=== PATIENT | male | born 1975 | race Caucasian/White ===

== ENCOUNTER 2022-02-18 20:53 | Inpatient (IN) ==
[2022-02-18] MEDS ORDERED: LORazepam 1 MG/1 ML SYR IV STA (20:56)
[2022-02-18] MEDS ORDERED: SODIUM CHLORIDE 0.9% 500 ML IV STA (20:56)
[2022-02-18] MEDS ORDERED: MoRPHine SULFATE 4 MG/ML 1 ML CARP\\VIAL IV STA (20:58)
[2022-02-18] MEDS ORDERED: ONDANSETRON INJ 2 MG/ML 2 ML VIAL IV STA (20:58)
[2022-02-18] MEDS ORDERED: ONDANSETRON INJ 2 MG/ML 2 ML VIAL ONE (21:00)
[2022-02-18] MEDS ORDERED: MoRPHine SULFATE 4 MG/ML 1 ML CARP\\VIAL ONE (21:00)
[2022-02-18] MEDS ORDERED: TICAGRELOR 90 MG TAB PO ONE (21:11)
[2022-02-18] MEDS ORDERED: niCARdipine HCL INJ 2.5 MG/ML 10 ML AMP ONE (21:12)
[2022-02-18] MEDS ORDERED: MIDAZOLAM HCL 1 MG/ML 2ML VIAL ONE (21:23)
[2022-02-18] MEDS ORDERED: fentaNYL citrate 100 MCG/2 ML VIAL ONE (21:23)
[2022-02-18] MEDS ORDERED: HEPARIN (PORCINE) 1000 UNIT/ML 10 ML (CATH LAB USE ONLY) ONE (21:23)
[2022-02-18 21:26] LABS: iSTAT Creatinine 1.1 mg/dl (0.6-1.3); iSTAT Ionized Calcium 1.08 mmol/l (1.12-1.32); iSTAT Potassium 3.8 mmol/L (3.3-5.0)
--- NOTE | 2022-02-18 21:26 | Emergency Department Note ---
Impression & Plan Acute PA, lateral wall, Chest pain ED Provider Note NAME: KIM CANADA AGE: 46 SEX: M : 1975 ARRIVES VIA: Ambulance INFORMANT: Patient, EMS ED PROVIDER(S): Sharad Pike DO CHIEF COMPLAINT: Chest pain HPI: The patient is a 46-year-old male who presented to the emergency department for an evaluation of chest pain. The patient started to develop chest pain approximately 7 PM this evening. He was not exerting himself. He does admit that he was at a camp[place] with his significant other. They tried a marijuana edible. The patient's never had any kind of reaction like this before. He has no family history of early coronary artery disease. He himself has no history of hypertension or diabetes but he admits that he does not see a doctor regularly. He does not take any medications regularly. He does use tobacco products. He states he has no shortness of breath. He has noticed no lower extremity swelling. He states he has severe chest pain which she described as a pressure that goes from his chest into his left arm. He denies having any back pain. He states the pain is not tearing. He has no family history of thoracic aortic aneurysm. The patient called 911. I did receive a prehospital notificat ion about this patient. The patient received aspirin as well as nitroglycerin prior to arrival. He had very little improvement of his symptoms. ROS: See above HPI for pertinent positives & negatives. A total of 10 systems reviewed and were otherwise negative. PAST MEDICAL HISTORY: See Below PAST SURGICAL HISTORY: See Below FAMILY HISTORY: See Below SOCIAL HISTORY: See Below HOME MEDICATIONS: See Below ALLERGIES: See Below VITALS: See Below PHYSICAL EXAMINATION: GENERAL: The patient is awake and alert. He is very anxious appearing and appears to be uncomfortable. EYES: The conjunctivae are clear. The pupils are round and reactive. EARS, NOSE, MOUTH AND THROAT: The nose is without any evidence of any deformity. NECK: The neck is nontender and supple. RESPIRATORY: Normal respiratory effort is noted there is no evidence of wheezing rhonchi or rales CARDIOVASCULAR: Regular rate and rhythm noted there no murmurs rubs or gallops normal S1 normal S2. GASTROINTESTINAL: The abdomen is soft. Abdomen is nontender. MUSCULOSKELETAL/EXTREMITIES: There is no evidence of gross deformity full range of motion is noted in the hips and shoulders. SKIN: There is no significant pedal edema. Pulses are symmetric in both wrists. NEUROLOGIC: Patient is awake alert and oriented x3 strength is symmetric patellar reflexes are 2+ bilaterally MEDICAL DECISION MAKING: The patient is a 46-year-old male who presented to the emergency department. The patient arrived via ambulance. I did receive a prehospital notification abo ut the patient. He was made a heart alert prior to arrival. The patient was treated with aspirin and nitroglycerin in the prehospital arena. He was felt to have an EKG consistent with an acute PA. The patient received IV pain medication and Ativan in the emergency department. He also received Brilinta. He was reevaluated multiple times. On reevaluation he was feeling much better and his EKG improved but still had findings consistent with acute ST segment elevation PA. The patient was evaluated by the lettuce cutter. He was felt to be a good candidate for the Final Touch Up Painter. He was consented for the Final Touch Up Painter. I discussed his condition with his significant other as well. I also discussed his case with the on-call [facility] hospitalist. Triage Nursing notes reviewed. Prior medical records reviewed Vital Signs: reviewed and remarkable for elevated blood pressure. Differential diagnosis: Cardiac ischemia, aortic dissection, pulmonary embolism, pneumothorax, pneumonia, pericarditis, myocarditis, esophageal rupture, GERD, cholecystitis, pancreatitis, musculoskeletal, as well as other pathologies. ER treatment provided: See below Diagnostics interpreted by me: ECG: EKG was obtained in the emergency department. My interpretation is normal sinus rhythm at 98 bpm. No PVCs were noted. There was acute ST segment elevation noted in the lateral leads as well as the apical leads. Reciprocal changes were noted in the inferior leads. No previous tracing was available. A second EKG was obtained in the emergency department. My interpretation is normal sinus rhythm at 81 bpm. This EKG was obtained after the patient was significantly improved. It does still show apical and low lateral ST segment elevation. The reciprocal changes have significantly improved. A prehospital EKG was obtained. My interpretation is normal sinus rhythm at [address] segment elevation was noted in the apical and low lateral leads. No reciprocal changes were noted. Cardiac Monitoring: An order was placed for continuous cardiac monitoring. The monitor shows a rate of 97 bpm with sinus rhythm. Laboratory studies: As stated above and show below. Imaging studies: See below Consultation(s): Heart alert was called. Dr. Spears was at the bedside and evaluated the patient. ED COURSE: Procedures: none Critical Care: I have personally spent greater than 35 minutes of critical care time in the d irect management of this patient. This includes bedside care, interpretation of diagnostic studies, and testing, discussion with consultants, patient, and family members, and other required patient management activities. This 35 minutes is in excess of all separately billable procedures. Past Med/Surg History Medical History Severe alcohol use disorder Surgical History History of appendectomy Social History Smoking Status: Current every day smoker Tobacco Type: Cigarettes Second Hand Exposure: No; Do You Dip or Chew Tobacco: No; Tobacco Cessation Education Requested by Patient: Yes Hx Alcohol Use: Yes Alcohol type: beer and hard liquor Hx Substance Use: Yes Last Used Substance: Just Prior to Arrival Preferred Language: Mohawk Communication Ability: Effective Furniture Cleaner Required: No Beliefs That Will Affect Care: None Current Living Situation: Significant Other Feels Safe at Home: Yes Safety Concerns: Feels Safe At This Time Assistive Devices: None Allergies Allergies Allergy/AdvReac Type Severity Reaction Status Date / Time No Known Allergies Allergy Verified 02/18/22 21:02 Home Meds Home Medications Medication Instructions Recorded Confirmed No Known Home Medications 02/18/22 02/18/22 Results & Data (ED) Vital Signs Vital Signs - 24 hr 02/18/22 20:57 02/18/22 21:11 02/18/22 21:12 Temperature 36.5 C Temperature Source Oral Pulse Rate 85 Pulse Rate [Right] 97 H Respiratory Rate 26 H 20 Respiratory Effort / Characteristics Non-Labored Spontaneous Non-Labored Spontaneous Respiratory Depth Normal Normal Blood Pressure 162/95 H Blood Pressure [Right Arm] 150/103 H Blood Pressure Mean 117 Blood Pressure Mean [Right Arm] 118 Blood Pressure Position Sitting Pulse Oximetry 99 100 100 Oxygen Delivery Method Room Air Room Air Room Air Sepsis Recent Fever Within 48 Hours No Sepsis New/Unexplained Change in Mental Status N/A Sepsis Action Taken by Nursing No Action Required Home Medications Current Medication List: was personally reviewed by sc Laboratory Data Attestation: I reviewed the patient's lab results. Result diagrams: 02/19/22 03:16 02/19/22 03:16 Lab Results 02/18/22 02/18/22 02/18/22 Range/Units 21:00 21:00 21:00 WBC 14.10 H (4.8-10.8) K/ul RBC 4.74 (4.63-6.08) M/uL Hgb 14.9 (14.0-18.0) g/dl POC Hgb (14.0-18.0) g/dl Hct 42.2 (40.1-51.0) % POC Hct (42-52) % MCV 89.0 (80.0-100.0) fL MCH 31.4 (25.0-34.0) pg MCHC 35.3 (32.0-36.0) g/dL RDW Std Deviation 41.6 (36.4-46.3) fL RDW Coeff of [place] 12.8 (11.5-14.5) % Plt Count 224 (130-400) K/uL MPV 10.6 (9.4-12.4) fL Immature Gran % (Auto) 0.6 % Neut % (Auto) 77.1 % Lymph % (Auto) 13.8 % [place] % (Auto) 7.0 % Eos % (Auto) 0.9 % Baso % (Auto) 0.6 % Neut # (Auto) 10.88 H (1.4-6.5) K/uL Lymph # (Auto) 1.95 (1.2-3.4) K/uL [place] # (Auto) 0.99 H (0.24-0.82) K/uL Eos # (Auto) 0.12 (0-0.50) K/uL Baso # (Auto) 0.08 (0-0.2) K/uL Immature Gran # (Auto) 0.08 H (0.00-0.02) K/uL PT 10.0 (9.0-12.0) Seconds INR 0.9 (0.9-1.1) APTT 23.1 (21.0-31.0) Seconds PTT Ratio 0.8 Activ Coag Time Kaolin (94-140) SECONDS POC Sodium (135-144) mmol/L Sodium 137 (136-145) mmol/L POC Potassium (3.3-5.0) mmol/L Potassium 3.4 L (3.5-5.1) mmol/L POC Chloride (101-112) mmol/L Chloride 102 (98-107) mmol/L Carbon Dioxide 24 (21-32) mmol/L POC Total CO2 (24-31) mmol/L Anion Gap 11 (3-11) POC Anion Gap (16-25) mmol/L POC BUN (7-18) mg/dl BUN 16 (6-23) mg/dl Creatinine 1.07 (0.6-1.4) mg/dl POC Creatinine (0.6-1.3) mg/dl Est Cr Clr Drug Dosing 118.2 ml/min Est GFR ( Amer) 97.3 ml/min Est GFR (Non-Af Amer) 84.0 ml/min BUN/Creatinine Ratio 15.0 (10-20) Glucose 102 H (70-99(Fasting)) mg/dl POC Glucose (other) (70-99) mg/dl Calcium 8.9 (8.5-10.1) mg/dl POC Ioniz Calcium Franky (1.12-1.32) mmol/l Total Bilirubin 0.5 (0.2-1.0) mg/dl AST 22 (13-39) U/L ALT 23 (7-52) U/L Alkaline Phosphatase 51 (34-104) U/L Troponin I High Sens 58.7 H* (0-20) pg/ml Total Protein 7.4 (6.0-8.3) gm/dl Albumin 4.6 (3.4-5.0) gm/dl Globulin 2.8 (2.5-4.0) gm/dl Albumin/Globulin Ratio 1.6 (0.9-2) Lipase 15 (11-82) U/L SARS-CoV-2, RNA, NAAT (NEGATIVE) 02/18/22 02/18/22 02/18/22 Range/Units 21:05 21:13 22:01 WBC (4.8-10.8) K/ul RBC (4.63-6.08) M/uL Hgb (14.0-18.0) g/dl POC Hgb 16.0 (14.0-18.0) g/dl Hct (40.1-51.0) % POC Hct 47 (42-52) % MCV (80.0-100.0) fL MCH (25.0-34.0) pg MCHC (32.0-36.0) g/dL RDW Std Deviation (36.4-46.3) fL RDW Coeff of [place] (11.5-14.5) % Plt Count (130-400) K/uL MPV (9.4-12.4) fL Immature Gran % (Auto) % Neut % (Auto) % Lymph % (Auto) % [place] % (Auto) % Eos % (Auto) % Baso % (Auto) % Neut # (Auto) (1.4-6.5) K/uL Lymph # (Auto) (1.2-3.4) K/uL [place] # (Auto) (0.24-0.82) K/uL Eos # (Auto) (0-0.50) K/uL Baso # (Auto) (0-0.2) K/uL Immature Gran # (Auto) (0.00-0.02) K/uL PT (9.0-12.0) Seconds INR (0.9-1.1) APTT (21.0-31.0) Seconds PTT Ratio Activ Coag Time Kaolin 227 H (94-140) SECONDS POC Sodium 137 (135-144) mmol/L Sodium (136-145) mmol/L POC Potassium 3.8 (3.3-5.0) mmol/L Potassium (3.5-5.1) mmol/L POC Chloride 103 (101-112) mmol/L Chloride (98-107) mmol/L Carbon Dioxide (21-32) mmol/L POC Total CO2 21 L (24-31) mmol/L Anion Gap (3-11) POC Anion Gap 18.0 (16-25) mmol/L POC BUN 16 (7-18) mg/dl BUN (6-23) mg/dl Creatinine (0.6-1.4) mg/dl POC Creatinine 1.1 (0.6-1.3) mg/dl Est Cr Clr Drug Dosing ml/min Est GFR ( Amer) ml/min Est GFR (Non-Af Amer) ml/min BUN/Creatinine Ratio (10-20) Glucose (70-99(Fasting)) mg/dl POC Glucose (other) 118 H (70-99) mg/dl Calcium (8.5-10.1) mg/dl POC Ioniz Calcium Franky 1.08 L (1.12-1.32) mmol/l Total Bilirubin (0.2-1.0) mg/dl AST (13-39) U/L ALT (7-52) U/L Alkaline Phosphatase (34-104) U/L Troponin I High Sens (0-20) pg/ml Total Protein (6.0-8.3) gm/dl Albumin (3.4-5.0) gm/dl Globulin (2.5-4.0) gm/dl Albumin/Globulin Ratio (0.9-2) Lipase (11-82) U/L SARS-CoV-2, RNA, NAAT NEGATIVE (NEGATIVE) Administered Medications Aspirin (Aspirin 81 Mg Ectab) [facility] Stop: 03/21/22 08:59 Last Admin: 02/19/22 08:23 Dose: 81 mg Documented By: GPF Atorvastatin Calcium (Atorvastatin 40 Mg Tab) 40 mg PO [facility] Stop: 03/21/22 08:59 Last Admin: 02/19/22 08:24 Dose: 40 mg Documented By: GPF Metoprolol Tartrate (Metoprolol Tartrate 25 Mg Tab) 25 mg PO BID [facility] Stop: 03/20/22 22:29 Last Admin: 02/19/22 08:24 Dose: 25 mg Documented By: Admin: 02/18/22 23:11 Dose: 25 mg Documented By: CF Pantoprazole Sodium (Pantoprazole 40 Mg Tab) 40 mg PO [facility] Stop: 03/21/22 08:59 Last Admin: 02/19/22 08:24 Dose: 40 mg Documented By: GPF Ticagrelor (Ticagrelor 90 Mg Tab) 90 mg PO BID [facility] Stop: 03/21/22 08:59 Last Admin: 02/19/22 08:24 Dose: 90 mg Documented By: GPF Discontinued Medications Amiodarone HCl/Dextrose (Amiodarone 360mg / 200ml D5w (Final Touch Up Painter Use Only)) Confirm Administered Dose 360 mg IV .STK-MED [facility] Stop: 02/18/22 21:39 Last Admin: 02/18/22 22:19 Dose: 150 mg Documented By: [facility] Amiodarone HCl (Amiodarone Hcl Inj 50 Mg/Ml 3 Ml Vial (Final Touch Up Painter Use Only)) Confirm Administered Dose 150 mg IV .STK-MED ONE Stop: 02/18/22 21:40 Last Admin: 02/18/22 22:20 Dose: 150 mg Documented By: MSD Fentanyl Citrate (Fentanyl Citrate 100 Mcg/2 Ml Vial) Confirm Administered Dose 100 mcg .ROUTE .STK-MED ONE Stop: 02/18/22 21:24 Last Increment: 02/18/22 22:19 Dose: 25 mcg Documented By: [facility] Heparin Sodium (Porcine) (Heparin (Porcine) 1000 Unit/Ml 10 Ml (Final Touch Up Painter Use Only)) Confirm Administered Dose 10,000 units .ROUTE .STK-MED ONE Stop: 02/18/22 21:24 Last Admin: 02/18/22 22:19 Dose: 10,000 units Documented By: VICENTE Sodium Chloride (Nss) 500 mls @ 999 mls/hr IV .Q31M STA Stop: 02/18/22 21:26 Last Infusion: 02/18/22 22:55 Dose: 0 mls/hr Documented By: Admin: 02/18/22 21:03 Dose: 999 mls/hr Documented By: LINSEY Pantoprazole Sodium 40 mg/ (Syringe) 10 mls @ 5 mls/min IV NOW ONE Stop: 02/18/22 23:01 Last Admin: 02/18/22 23:11 Dose: 5 mls/min Documented By: KARLA Lorazepam 1 mg/ Syringe 1 mls @ 2 mls/min IV ONE PRN; Protocol PRN Reason: EtoH Withdrawal AWSS 6,7,8,9,10 Last Admin: 02/19/22 00:06 Dose: 2 mls/min Documented By: KARLA Lorazepam (Lorazepam 1 Mg/1 Ml Syr) 1 mg IV NOW STA; Protocol Stop: 02/18/22 20:57 Last Admin: 02/18/22 21:03 Dose: 1 mg Documented By: LINSEY Midazolam HCl (Midazolam Hcl 1 Mg/Ml 2ml Vial) Confirm Administered Dose 2 mg .ROUTE .STK-MED ONE Stop: 02/18/22 21:24 Last Increment: 02/18/22 22:19 Dose: 1 mg Documented By: VICENTE Morphine Sulfate (Morphine Sulfate 4 Mg/Ml 1 Ml Carp\Vial) 4 mg IV NOW STA Stop: 02/18/22 20:59 Last Admin: 02/18/22 21:03 Dose: Not Given Documented By: LINSEY Morphine Sulfate (Morphine Sulfate 4 Mg/Ml 1 Ml Carp\Vial) Confirm Administered Dose 4 mg .ROUTE .STK-MED ONE Stop: 02/18/22 21:01 Last Admin: 02/18/22 21:03 Dose: 4 mg Documented By: LINSEY Nicardipine HCl (Nicardipine Hcl Inj 2.5 Mg/Ml 10 Ml Amp) Confirm Administered Dose 25 mg .ROUTE .STK-MED ONE Stop: 02/18/22 21:13 Last Admin: 02/18/22 22:19 Dose: 25 mg Documented By: VICENTE Ondansetron HCl (Ondansetron Inj 2 Mg/Ml 2 Ml Vial) 4 mg IV NOW STA Stop: 02/18/22 20:59 Last Admin: 02/18/22 21:03 Dose: 4 mg Documented By: LINSEY Ondansetron HCl (Ondansetron Inj 2 Mg/Ml 2 Ml Vial) Confirm Administered Dose 4 mg .ROUTE .STK-MED ONE Stop: 02/18/22 21:01 Last Admin: 02/18/22 21:04 Dose: Not Given Documented By: LINSEY Potassium Chloride (Potassium Chloride Crtab 20 Meq Tabcr) 40 meq PO NOW STA Stop: 02/19/22 04:01 Last Admin: 02/19/22 04:13 Dose: 40 meq Documented By: KARLA Ticagrelor (Ticagrelor 90 Mg Tab) 180 mg PO ONE ONE Stop: 02/18/22 21:12 Last Admin: 02/18/22 21:17 Dose: 180 mg Documented By: LINSEY Imaging Data Attestation: I personally reviewed and interpreted this imaging study as follows: My Impression: 1 view chest x-ray was obtained in the emergency department. My interpretation is no definite free air, no infiltrate, no acute disease. Radiologist's Impression: Chest X-Ray 02/18/22 20:56 XR chest 1V portable CLINICAL HISTORY: Chest Pain TECHNIQUE: Single frontal radiograph of the chest was obtained. Comparison: None available at the time of this dictation. FINDINGS: Exam is limited by underpenetration. The cardiomediastinal silhouette is normal. Faint airspace opacity is seen in the right greater than left lower lung. No evidence of pleural effusion or pneumothorax. IMPRESSION: Faint bilateral airspace opacities which may represent aspiration, atelectasis, and/or pneumonia. ACT 112: Negative or not required by law. Electronically signed by: Ramakrishna Bryant M.D. 02/19/2022 7:58 AM Discharge Plan Visit Data Chief Complaint: Heart Alert ED Provider: Sharad Pike Discharge Problem: Acute PA, lateral wall, Chest pain Patient Disposition: Admitted As Inpatient Discharge Instructions Interventions: ED Discharge Assessment Last Done: 02/18/22 21:19 : Chest pain Qualifiers: Chest pain type: chest pain due to myocardial ischemia Ischemic chest pain type: unspecified angina pectoris type Qualified Code(s): I25.9 - Chronic ischemic heart disease, unspecified
[2022-02-18 21:28] LABS: INR 0.9 (0.9-1.1); Partial Thromboplastin Ratio 0.8; Partial Thromboplastin Time 23.1 Seconds (21.0-31.0)
[2022-02-18 21:36] LABS: Basophils # (auto) 0.08 K/uL (0-0.2); Basophils % (auto) 0.6 %; Eosinophils # (auto) 0.12 K/uL (0-0.50); Eosinophils % (auto) 0.9 %; Hematocrit (blood only) 42.2 % (40.1-51.0); Hemoglobin 14.9 g/dl (14.0-18.0); Immature Granulocytes # (auto) 0.08 K/uL (0.00-0.02); Immature Granulocytes % (auto) 0.6 %; Lymphocytes # (auto) 1.95 K/uL (1.2-3.4); Lymphocytes % (auto) 13.8 %; Mean Corpuscular Hemoglobin 31.4 pg (25.0-34.0); Mean Corpuscular Hgb Conc 35.3 g/dL (32.0-36.0); Mean Platelet Volume 10.6 fL (9.4-12.4); Monocytes # (auto) 0.99 K/uL (0.24-0.82); Neutrophils # (auto) 10.88 K/uL (1.4-6.5); Neutrophils % (auto) 77.1 %; Platelet Count 224 K/uL (130-400); RDW Coefficient of Variation 12.8 % (11.5-14.5); RDW Standard Deviation 41.6 fL (36.4-46.3); Red Blood Count 4.74 M/uL (4.63-6.08)
[2022-02-18] MEDS ORDERED: AMIODARONE 360MG / 200ML D5W (CATH LAB USE ONLY) IV ONE (21:38)
[2022-02-18] MEDS ORDERED: AMIODARONE HCL INJ 50 MG/ML 3 ML VIAL (CATH LAB USE ONLY) IV ONE (21:39)
[2022-02-18 21:47] LABS: Albumin Globulin Ratio 1.6 (0.9-2); Albumin Level 4.6 gm/dl (3.4-5.0); Bilirubin,Total 0.5 mg/dl (0.2-1.0); Calcium 8.9 mg/dl (8.5-10.1); Creatinine Clr Calc Pharmacy 118.2 ml/min; Est GFR (African American) 97.3 ml/min; Globulin 2.8 gm/dl (2.5-4.0); Potassium 3.4 mmol/L (3.5-5.1); Total Protein 7.4 gm/dl (6.0-8.3)
[2022-02-18 21:48] LABS: Troponin I High Sensitivity 58.7 pg/ml (0-20)
--- NOTE | 2022-02-18 21:55 | History & Physical Report ---
Date of Service February 18, 2022 Assessment & Plan (1) STEMI (ST elevation myocardial infarction): Plan: Symptoms of unstable angina with anterolateral ST segment elevations on initial EKG in the ED. S/p PCI with KATIE to LAD. - admit to ICU for close hemodynamic monitoring - hsTroponin 58.7 - trend to peak - TTE ordered - pending - EKG PRN chest pain - s/p Aspirin 324mg en route to hospital - continue with ASA 81mg daily - loaded with Brilinta - continue with Brilinta 90mg daily - start Atorvastatin 40mg PO QAM - start Metoprolol tartrate 25mg PO BID - consider BRENNA-I - defer to primary team/Cardiology - lipid profile and A1c ordered for AM (2) S/P coronary artery stent placement: Plan: KATIE to LAD. Plan as above (3) Current smoker: Plan: 25 pack year history and currently smokes 1/2-1ppd. - counseled on cessation (4) Severe alcohol use disorder: Plan: Has 6-12 drinks per day, and had 3 beers shortly before presentation. - AWSS protocol with PRN Ativan - counseled on cessation Plan FEN/GI: heart-healthy diet DVT Prophylaxis: Aspirin/Brilinta Code Status: full code Disposition: ICU History of Present Illness Chief Complaint: chest pain Primary Care Provider: NO PCP Bubba Jacques is a 46yo male without significant PMHx who presented to [facility] ED on 02/18 via EMS as heart alert, for acute-onset retrosternal chest pain radiating to left arm - acute onset at 7pm and non-exertional. Patient does not regularly see a doctor but denies chronic medical problems or regular medications. He is a current smoker with 25 pack year history and currently smokes 1/2-1ppd. Also has 6-12 drinks per day (usually mixed drinks and beer); last drink was earlier this evening. Denies family h/o CAD/heart disease/[place]. Patient received Aspirin 324mg and SL Nitroglycerin en route to our ED, with minimal improvement in symptoms. In the ED the patient had persistent chest pain. Mildly hypertensive to 162/95 and tachypneic to 26. Satting well on room air. EKG with anterolateral ST elevations. Labs otherwise notable for hsTroponin 58.7, WBC 14.10 (neutrophilic predominance and mild L shift), K 3.4. CBC/CMP/PT/PTT/INR otherwise WNL. Patient was taken for PCI with KATIE x1 to LAD. Was also loaded with Brilinta. On assessment after PCI, patient reports that chest pain has resolved but still has mild left arm pain. Allergies Allergy/AdvReac Type Severity Reaction Status Date / Time No Known Allergies Allergy Verified 02/18/22 21:02 Home Medications Medication Instructions Recorded Confirmed Type No Known Home Medications 02/18/22 02/18/22 History Past Med/Surg History Medical History Severe alcohol use disorder Surgical History History of appendectomy Social History Smoking Status: Current every day smoker Tobacco Type: Cigarettes Second Hand Exposure: No; Do You Dip or Chew Tobacco: No; Tobacco Cessation Education Requested by Patient: Yes Hx Alcohol Use: Yes Alcohol type: beer and hard liquor Hx Substance Use: Yes Last Used Substance: Just Prior to Arrival Preferred Language: Bolivian Communication Ability: Effective Treatment Plant Mechanic Required: No Beliefs That Will Affect Care: None Current Living Situation: Significant Other Feels Safe at Home: Yes Safety Concerns: Feels Safe At This Time Assistive Devices: None Review of Systems Review of Systems: All systems reviewed & are unremarkable except as noted in HPI & below Physical Exam Physical Exam: General: A&Ox3. NAD. Cooperative. HEENT: Atraumatic, normocephalic. Pulm: CTAB A&P. -wheezes, -rales, -rhonchi. Symmetrical chest rise. No increase work of breathing. No respiratory distress. Cardiac: RRR, -mrg. Radial pulses intact and symmetrical. No LE edema. Chest: pain not reproducible on palpation Abdominal: soft, non-tender, non-distended, BS x 4 Skin: warm, dry, no rash Results & Data Results & Data ([facility]) Vital Signs (Past 12 Hours) Vital Signs Temp Pulse Pulse Resp BP BP Pulse Ox 02/18/22 21:12 97 H 20 150/103 H 100 02/18/22 21:11 100 02/18/22 20:57 36.5 C 85 26 H 162/95 H 99 O2 Del Method 02/18/22 21:12 Room Air 02/18/22 21:11 Room Air 02/18/22 20:57 Room Air Supervising Physician Co-Signing Physician Notes Patient seen and examined, chart reviewed, case discussed with Dr. Eugene and I agree with the assessment and plan as above. In brief, patient is a 46yo male, tobacco use, absent from routine medical care presenting with chest pain - EKG changes consistent with anterior STEMI. Patient Code Heart - taken to the quality assurance/r&d lab technician and found to have 80 - 90% stenosis of proximal LAD s/p KATIE placement. He is presently in the MICU, doing well. Denies chest pain. On exam he is afebrile, hypertensive otherwise HD stable. No ectopy noted on telemetry Skin - intact, no rashes HEENT - NC/AT, PERRL, MMM, neck supple Heart - +S1/S2, regular, no m/r/g Lungs - CTA Abd - +BS, soft, NT/ND Ext - warm, well perfused, no clubbing/cyanosis or edema, occlusion band present on right wrist Labs and images reviewed WBC=14 K=3.4 Trop=58.7 Assessment/Plan- 46yo male, active tobacco use and EtoH presenting with anterior STEMI, EF of 40-45% with apical akinesis -Trend troponin -Echo in AM -ASA, Brillinta, Metoprolol, Atorvastatin -Check A1C and Lipid profile for risk assessment -Smoking cessation counseling -AWSS, PRN Ativan -Remainder as above Resident Activity Tracking Resident Involvement: Resident Care Provided Care Provided: Adult Hospital Medicine
[2022-02-18] MEDS ORDERED: ICU Protocol for HYPERglycemia PRN (22:17)
--- NOTE | 2022-02-18 22:51 | Critical Care Consultation ---
Date of Consultation February 18, 2022 Assessment & Plan (1) STEMI (ST elevation myocardial infarction): (2) S/P coronary artery stent placement: (3) Current smoker: Plan Reason Critically Ill: STEMI s/p KATIE to LAD. Admitted to ICU for continued monitoring post procedure. Neuro - ETOH misuse CAM ICU: Negative - Follow as sedating medications wear off - CIWA protocol recommended Cardiac - STEMI, S/p Stenting of Proximal LAD [place] coronary artery, Elevated blood pressure - Arrived hypertensive - BB initiated, BRENNA as hemodynamics allow - Continue Brilinta 90 mg PO BID - Statin initiation - ASA 81mg daily - ECHO in am - ECG now and with chest pain - Continue to trend HScTNI - Smoking cessation Respiratory - Current smoker - as above GI - GERD - OTC treatment occasionally- will add PPI on while on DAPT RENAL/LYTES -NO acute needs - electrolyte replacement protocol - No acute needs ENDO - follow lipid panel, and HGBA1c - elevated serum glucose on arrival- follow HEME - NO acute needs ID - No acute needs LINES/IV ACCESS - PIV, radial access site - continue post site protocol for radial access Continue use of PIV DVT PROPHYLAXIS - SCDS DISPO: ICU overnight I have personally spent 40 minutes of critical care time in the direct management of this patient. This is a life/limb threatening event. This includes time spent evaluating patient, direct bedside care, chart review, placing orders, interpretation of diagnostic studies, discussion with consultants, patient, and family members, as well as other required patient management activities. This time is exclusive of all separately billable procedures, and separate from and in addition to any other critical care service time. Thank you for allowing us to participate in the care of this patient. Please refer to my attending physician's documentation for any further recommendations. History of Present Illness Reason for Consultation: STEMI s/p KATIE Requesting Physician: Joie Cifuentes Attending Physician: Cici Rowland MD History of Present Illness 46 YOM presents to the EMD today for complaints of chest pain. Patient states that they were camping and following 3 beers and some edible gummies, he started to experience chest and left arm pain. The pain started in his left arm then progressed to his wrist, neck and chest- feeling like "jolts of shocks", this was associated with diaphoresis, pain, difficulty breathing. 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 His girlfriend is at bedside and endorses that he has seemed more dyspneic over the past few weeks. He was transported by EMS. In the EMD the patient received Ativan, morphine with some relief of his pain and improvement in ECG. He was taken emergently to the lab aide, where he received 1 KATIE to the LAD. Patient was evaluated in the ICU post procedure, we will continue monitoring, continue BID Brilinta, BB initiation, smoking cessation. Further risk reduction medical management as hemodynamics allow. History of current smoker, ETOH use 3-8 beers daily with episodes of binging up to 12 >3 times per week, patient reports no family history of early heart attacks. Allergies Allergy/AdvReac Type Severity Reaction Status Date / Time No Known Allergies Allergy Verified 02/18/22 21:02 Home Medications Medication Instructions Recorded Confirmed Type No Known Home Medications 02/18/22 02/18/22 History Patient History Medical History Severe alcohol use disorder Surgical History History of appendectomy Social History Smoking Status: Current every day smoker Tobacco Type: Cigarettes Second Hand Exposure: No; Do You Dip or Chew Tobacco: No; Tobacco Cessation Education Requested by Patient: Yes Hx Alcohol Use: Yes Alcohol type: beer and hard liquor Hx Substance Use: Yes Last Used Substance: Just Prior to Arrival Preferred Language: Polish Communication Ability: Effective Archeologist Required: No Beliefs That Will Affect Care: None Current Living Situation: Significant Other Feels Safe at Home: Yes Safety Concerns: Feels Safe At This Time Assistive Devices: None Review of Systems Review of Systems: REVIEW OF SYSTEMS: Constitutional: No fever, sweats or chills Eyes: No diplopia, no worsening or blurred vision ENT: normal hearing, no trouble swallowing Respiratory: (+) smoker, No cough, sputum, dyspnea at rest or on exertion Cardiovascular: (+) chest pain, tightness or NO palpitations Abdomen: No pain, nausea, vomiting, diarrhea or constipation Musculoskeletal: No joint pain, calf pain, swelling Neurologic: No weakness, numbness/tingling, or balance problems Psychiatric: (+) ETOH misuse, No anxiety or depression Skin: No rash or itch Physical Exam Physical Exam: PHYSICAL EXAM: General: awake, alert, no apparent distress Head: Normocephalic, atraumatic ENT: PERRL, EOMI, no pharyngeal exudate, mucous membranes moist Neuro: AAO x 3, speech clear and appropriate, strength intact bilaterally 5/5, sensation intact and equal all extremities and dermatomes, no pronator drift Chest: equal rise and fall of the chest, no accessory muscle use, no heaves or thrills, Clear to auscultation, on room air, Cardiac: Regular rate and rhythm, telemetry reviewed- NSR no ectopy, skin warm dry, cap refill <3 seconds, peripheral pulses +2 no JVD, no murmur, no edema GI: NABS x 4 quadrants, soft, nontender to palpation, no rebound, guarding or tenderness : Spontaneously voiding, no pain, no CVA tenderness, Extremities: Normal inspection, no peripheral edema or erythema, calfs nontender to palpation Psych: Normal mood and affect Skin: no rash or erythema Results & Data Results & Data ([facility]) Vital Signs (Past 12 Hours) Vital Signs Temp Pulse Pulse Resp BP BP Pulse Ox 02/18/22 22:31 36.8 C 75 20 142/90 H 98 02/18/22 21:12 97 H 20 150/103 H 100 02/18/22 21:11 100 02/18/22 20:57 36.5 C 85 26 H 162/95 H 99 O2 Del Method 02/18/22 22:31 Room Air 02/18/22 21:12 Room Air 02/18/22 21:11 Room Air 02/18/22 20:57 Room Air Laboratory Results Abnormal lab results 02/18/22 02/18/22 02/18/22 Range/Units 21:00 21:00 21:13 WBC 14.10 H (4.8-10.8) K/ul Neut # (Auto) 10.88 H (1.4-6.5) K/uL [place] # (Auto) 0.99 H (0.24-0.82) K/uL Immature Gran # (Auto) 0.08 H (0.00-0.02) K/uL Activ Coag Time Kaolin (94-140) SECONDS Potassium 3.4 L (3.5-5.1) mmol/L POC Total CO2 21 L (24-31) mmol/L Glucose 102 H (70-99(Fasting)) mg/dl POC Glucose (other) 118 H (70-99) mg/dl POC Ioniz Calcium Franky 1.08 L (1.12-1.32) mmol/l Troponin I High Sens 58.7 H* (0-20) pg/ml 02/18/22 Range/Units 22:01 WBC (4.8-10.8) K/ul Neut # (Auto) (1.4-6.5) K/uL [place] # (Auto) (0.24-0.82) K/uL Immature Gran # (Auto) (0.00-0.02) K/uL Activ Coag Time Kaolin 227 H (94-140) SECONDS Potassium (3.5-5.1) mmol/L POC Total CO2 (24-31) mmol/L Glucose (70-99(Fasting)) mg/dl POC Glucose (other) (70-99) mg/dl POC Ioniz Calcium Franky (1.12-1.32) mmol/l Troponin I High Sens (0-20) pg/ml Medications Administered Discontinued Medications Amiodarone HCl/Dextrose (Amiodarone 360mg / 200ml D5w (Orthotic/Prosthetic Practitioner Use Only)) Confirm Administered Dose 360 mg IV .STK-MED ONE Stop: 02/18/22 21:39 Last Admin: 02/18/22 22:19 Dose: 150 mg Documented By: [facility] Amiodarone HCl (Amiodarone Hcl Inj 50 Mg/Ml 3 Ml Vial (Orthotic/Prosthetic Practitioner Use Only)) Confirm Administered Dose 150 mg IV .STK-MED ONE Stop: 02/18/22 21:40 Last Admin: 02/18/22 22:20 Dose: 150 mg Documented By: [facility] Fentanyl Citrate (Fentanyl Citrate 100 Mcg/2 Ml Vial) Confirm Administered Dose 100 mcg .ROUTE .STK-MED ONE Stop: 02/18/22 21:24 Last Increment: 02/18/22 22:19 Dose: 25 mcg Documented By: [facility] Heparin Sodium (Porcine) (Heparin (Porcine) 1000 Unit/Ml 10 Ml (Orthotic/Prosthetic Practitioner Use Only)) Confirm Administered Dose 10,000 units .ROUTE .STK-MED ONE Stop: 02/18/22 21:24 Last Admin: 02/18/22 22:19 Dose: 10,000 units Documented By: VICENTE Sodium Chloride (Nss) 500 mls @ 999 mls/hr IV .Q31M STA Stop: 02/18/22 21:26 Last Admin: 02/18/22 21:03 Dose: 999 mls/hr Documented By: LINSEY Lorazepam (Lorazepam 1 Mg/1 Ml Syr) 1 mg IV NOW STA; Protocol Stop: 02/18/22 20:57 Last Admin: 02/18/22 21:03 Dose: 1 mg Documented By: LINSEY Midazolam HCl (Midazolam Hcl 1 Mg/Ml 2ml Vial) Confirm Administered Dose 2 mg .ROUTE .STK-MED ONE Stop: 02/18/22 21:24 Last Increment: 02/18/22 22:19 Dose: 1 mg Documented By: VICENTE Morphine Sulfate (Morphine Sulfate 4 Mg/Ml 1 Ml Carp\\Vial) 4 mg IV NOW STA Stop: 02/18/22 20:59 Last Admin: 02/18/22 21:03 Dose: Not Given Documented By: LINSEY Morphine Sulfate (Morphine Sulfate 4 Mg/Ml 1 Ml Carp\\Vial) Confirm Administered Dose 4 mg .ROUTE .STK-MED ONE Stop: 02/18/22 21:01 Last Admin: 02/18/22 21:03 Dose: 4 mg Documented By: LINSEY Nicardipine HCl (Nicardipine Hcl Inj 2.5 Mg/Ml 10 Ml Amp) Confirm Administered Dose 25 mg .ROUTE .STK-MED ONE Stop: 02/18/22 21:13 Last Admin: 02/18/22 22:19 Dose: 25 mg Documented By: VICENTE Ondansetron HCl (Ondansetron Inj 2 Mg/Ml 2 Ml Vial) 4 mg IV NOW STA Stop: 02/18/22 20:59 Last Admin: 02/18/22 21:03 Dose: 4 mg Documented By: LINSEY Ondansetron HCl (Ondansetron Inj 2 Mg/Ml 2 Ml Vial) Confirm Administered Dose 4 mg .ROUTE .STK-MED ONE Stop: 02/18/22 21:01 Last Admin: 02/18/22 21:04 Dose: Not Given Documented By: LINSEY Ticagrelor (Ticagrelor 90 Mg Tab) 180 mg PO ONE ONE Stop: 02/18/22 21:12 Last Admin: 02/18/22 21:17 Dose: 180 mg Documented By: LINSEY ECG Additional Comments: Normal sinus rhythm Acute pericarditis Abnormal ECG When compared with ECG of 18-FEB-2022 20:57, (unconfirmed) Premature supraventricular complexes are no longer Present Criteria for Inferior infarct are no longer Present ST elevation has replaced ST depression in Inferior leads ST less elevated in Anterolateral leads T wave inversion no longer evident in Inferior leads Coding Level of Care Code Critical Care 1st 30-74 mins Diagnoses STEMI (ST elevation myocardial infarction) I21.3 S/P coronary artery stent placement Z95.5 Current smoker F17.200
--- NOTE | 2022-02-18 22:53 | Cardiac Catheterization ---
ACC Data: [employer] Cardiac Status Clinical evaluation leading to the procedure CAD Presenation: STEMI Anginal Classification: CCS IV Heart Failure: No Cardiogenic Shock within 24 Hours: No Cardiac Arrest within 24 Hours: No Imaging Studies Past 6 Months: No STEMI OR Non-STEMI Symptom Onset Date: 02/18/22 Symptom Onset Time: 18:30 Thrombolytics: No Coronary Anatomy Dominant: Right Left Main (% Stenosis): Normal LAD (% Stenosis): Proximal (80-90) D1 (% Stenosis): Mid (70 to 80% inferior branch) D2 (% Stenosis): Ostial (40 to 50%) Circumflex (% Stenosis): Normal OM1 (% Stenosis): Normal RCA (% Stenosis): Normal R PDA (% Stenosis): Normal R PL1 (% Stenosis): Normal Left Ventricular Angiography EF (%): 40-45 Wall Motion: Anterior and Apical (Akinetic) Mitral Regurgitation: 1+ Diagnostic Physicians Name: Velasquez Spears MD, PhD Closure Device Percutaneous Entry Location: Radial Closure Device: Radial Band Recommendations: Medical Therapy and/or Counseling and PCI without planned CABG PCI Indication: PCI for STEMI - Stable First Noted: First EKG Lesion Segment Name: Proximal LAD Culprit Artery: Yes Stenosis Prior to Rx (%): 80 to 90% Pre-Procedure OSWALD Flow: 2 Previously Treated Lesion: No Lesion Complexity: Non-High/Non-C Lesion Length (mm): 12 to 14 mm Thrombus Present: Yes Bifurcation Lesion: No Guidewire Across Lesion: Yes Intraprocedure Events Significant Disection: No Perforation: No Cardiac Cath Procedure Full Procedure Date February 18, 2022 Pre-Procedure Diagnosis Pre-Procedure Diagnosis: STEMI AUC Score AUC Score: 09 Post-Procedure Diagnosis Post-Procedure Diagnosis: Severe CAD Procedure(s) Performed Procedure(s) Performed: Coronary Angiography, Left Heart Cath, LV Angiography, Drug Eluting Stent and Ultrasound Guided Vascular Access [employer] Velasquez Spears MD, PhD Estimated Blood Loss Estimated Blood Loss: 10 ml Medication(s) Medication(s): Fentanyl, Heparin, Lidocaine 1%, Nicardipine, Nitroglycerin and Versed Summary of Findings Brief description: Patient was brought to the cardiac catheterization suite where he was shaved and prepped in a sterile fashion. Sedated using IV Versed and fentanyl. Soft tissues of the right wrist were anesthetized using 2 mL of 1% Xylocaine. Using ultrasound for guidance (image saved), the right radial artery was accessed and a 6 [place]i radial artery glide sheath was placed. Patient was provided anticoagulation with IV heparin and antispasmodics including nicardipine and nitroglycerin. All catheters were advanced and exchanged over a 0.035 J-tip wire. Left coronary angiography in orthogonal views with a 6 [place]i EBU 3.0 guide catheter. Right coronary angiography in orthogonal views with a 5 Yemeni JR4 diagnostic catheter. Left heart cath and left ventriculogram were performed with a 5 Yemeni angled pigtail catheter. Diagnostic catheters were removed. Patient was provided additional IV heparin based on ACT as needed to perform PCI. PCI of the LAD was undertaken using the 6 [place]i EBU 3.0 guide catheter. Through this, a BMW reversal guidewire was advanced and positioned distally in the LAD. The proximal LAD lesion was predilated using a 2.5 x 12 mm PTCA balloon inflated to 14 azael. A 3.5 x 18 mm drug-eluting stent was then positioned across the lesion such that the proximal edge was at the ostium of the LAD and the distal edge was beyond the visible edge of the lesion. The stent was deployed at 18 azael. The proximal and mid portion of the stent were then postdilated using a 3.75 x 12 mm noncompliant balloon at various inflations with maximum 14 azael. After removal of the balloon and guidewire final angiographic evaluation was performed. Radial artery sheath was removed. Hemostasis was obtained using a TR band. Patient was hemodynamically stable and asymptomatic. He was returned to the recovery area. This ended the case. Coronary angiography, left ventriculogram, and PCI findings: LMT: Large caliber vessel bifurcating into LAD and left circumflex. No angiographically significant disease. LAD: Large caliber and transapical vessel. From the ostium through the majority of the proximal vessel there is a hazy shelflike lesion of 90+ percent. Appears to be predominantly thrombus plus some atherosclerotic plaque. There is OSWALD II flow in the LAD distal to this lesion. There is a first septal branch at about the same level of the large caliber multi branching first diagonal. The mid LAD has mild luminal irregularities. The inferior branch of the first diagonal has a focal 80% stenosis. There is then a large caliber long second diagonal with ostial to proximal 40% stenosis. The distal LAD has no significant disease and is seen to wrap the apex. Left circumflex: Medium to large caliber and nondominant vessel. Proximal mild plaque less than 20% stenosis. First major branch is an OM1 of medium caliber that branches distally. The AV groove circumflex in the midsegment then becomes medium caliber providing an atrial branch before it terminates distally as a small caliber AV groove vessel. There is no more than mild luminal irregularities in the remainder of the circumflex and its branches. RCA: Large caliber and dominant vessel. Mild tortuosity proximally. Distally the vessel bifurcates into a very large caliber and long PDA and a very large caliber multi branching posterolateral. There is no more than mild luminal irregularities in the RCA and its branches. LVEF: 40 to 45% 1+ mitral regurgitation Mid and distal anterior hypokinesis, apical akinesis PCI of LAD: 0% residual stenosis post PCI OSWALD-3 flow post PCI No evidence of dissection or perforation post PCI Hemodynamics Rest Ao:: 104/53 mmHg, mean 77 mmHg Final Ao: 149/112 mmHg, mean 131 mmHg LV: 143/20 mmHg, LVEDP 32 mmHg Recommendations Recommendations: Medical Therapy and/or Counseling and PCI without planned CABG Radiation Exposure (mGy) 1634 mGy, 8.4 minutes fluoroscopy time Contrast (mls) 120 Anesthesia 1 mg IV Versed, 25 mcg IV fentanyl Procedural Complication(s) None Disposition ICU I attest to the content of the Intraoperative Record and any orders documented therein. Any exceptions are noted below. [employer] Card Cath Procedure Codes Cardiac Catheterization Procedure 1: Cardiovascular Cath Procedures: 50348 Coronaries and LHC (+/-LV) Therapeutic Services & Ancillary Procedure 1: Cardiovascular Tx and Anc Procedures: 11484 Ultrasonic Guidance Vascular Access Moderate Sedation Procedure 1: Sedation/Anesthesia: 29316 Mod Sedation by the same physician;Init15 Min Child Age 5 & Up (15 minutes (total time 36 minutes)) Procedure 2: Sedation/Anesthesia: 14873 Mod Sedation by the same physician; Ea [id number] Minutes (21 additional minutes (total sedation time 36 minutes)) Stenting Procedure 1: Cardiovascular Stent Procedures: 74544 Perc transluminal revascularization of acute sub/total occl, aMI (LAD) PG Care Time/CCT Total # of Minutes Spent Total Time Spent with Patient: Total time spent is greater than 50% in coordination of care (as documented) at patient's floor/unit and/or counseling patient:
[2022-02-18] MEDS ORDERED: LORazepam 1 MG in SYRINGE 0 ML IV PRN (22:58)
[2022-02-18] MEDS ORDERED: PANTOprazole 40 MG in SYRINGE 0 ML IV ONE (23:00)
[2022-02-18] MEDS: METOPROLOL TARTRATE 25 MG TAB PO SCH (23:11)
--- NOTE | 2022-02-18 23:13 | Cardiology Consultation ---
Date of Consultation February 18, 2022 Assessment & Plan (1) STEMI (ST elevation myocardial infarction): Severe lesion in the " maker area" of the LAD. Successful PCI with a large caliber stent. Good flow following implantation. No significant residual coronary disease except for in small branch vessel. This is not amenable to PCI. Reduced EF on the left ventriculogram. He will require dual antiplatelet therapy with aspirin 81 mg daily and Brilinta 90 mg p.o. twice daily. I suspect this may be cost prohibitive. In that case he should be discharged with a 30- day supply from the company and he can be switched to Plavix to complete 1 to 2 years dual antiplatelet therapy. We will also initiate guideline directed medical therapy for secondary prevention of coronary disease to include; beta- thierno, statin, plus or minus BRENNA inhibitor/ARB as tolerated. He will need to remain in the ICU for 24 hours post SC per standard of care. He would then be ready for stepdown unit. (2) Severe alcohol use disorder: He will need prophylaxis to prevent delirium tremens. Primary team to manage. (3) Atherogenic dyslipidemia: He is considered high risk. Highest intensity statin therapy is recommended. Initiating a atorvastatin 40 mg daily. We will need to check a fasting lipid panel for baseline untreated level. (4) Ischemic cardiomyopathy: Reduced EF by left ventriculogram. Will obtain a full study echocardiogram. Likely would benefit from a heart failure indicated beta-thierno and at least angiotensin receptor thierno or BRENNA inhibitor depending upon his true LV dysfunction. Currently without evidence of volume overload although his left ventricular end-diastolic pressure is elevated suggesting that he may benefit from mild diuresis. We will give him Lasix 20 mg daily to begin with. Further recommendations pending results of complete echo Doppler study. (5) Benign essential hypertension: Blood pressure was very elevated on presentation and initially during the procedure. Over 160 mmHg systolic. Suspect this is predominantly secondary to the adrenaline surge she had as well as stress/anxiety. We will reassess his blood pressure after initiating low-dose beta-thierno followed by BRENNA inhibitor/ARB and then titrate as needed to achieve target. Plan I will follow tomorrow. History of Present Illness Reason for Consultation: Acute anterior ST elevation SC Attending Physician: Cici Rowland MD History of Present Illness This is a 46-year-old gentleman who was traveling through the area. He was staying at a local campground and developed sudden onset severe chest pressure with radiation to his left arm, squeezing, shortness of breath, and mild nausea. This began around 6:30 PM. When it continued to worsen EMS was called and initial EKG suggested ACS. A subsequent follow-up EKG demonstrated worsening ST elevations in the anterolateral leads with reciprocal ST depressions elsewhere. A "heart alert" was called. I met the patient in the emergency department where he had received Ativan, nitro, aspirin. He reported reduction in his pain but still had 4 out of 10 discomfort on my arrival. After brief discussion with the patient and his significant other we decided to proceed with emergent cardiac cath. As it turns out, the patient had been drinking alcohol as is his usual habit and he also took edible marijuana [place] the [place]. Patient underwent emergent cardiac catheterization revealing large thrombus and atherosclerotic plaque in the ostial to proximal LAD. OSWALD II flow distally. This was demonstrated after the patient had received Brilinta 180 mg p.o. in the emergency department. We proceeded then with drug-eluting stent implantation of the LAD with good angiographic results, total resolution of his chest discomfort, and improving EKG findings on the monitor. Left ventriculogram suggested mild to moderate LV dysfunction. I spoke further with his significant other (Renea) who revealed that he has an alcohol problem. She states he did not take any cocaine, methamphetamine, or other illicit substances besides the edible marijuana. She states he drinks the equivalent of a 12 pack per night. Patient is now admitted to the intensive care unit for further work-up and management. No preceding chest pain episodes that he would admit to. He does have a family history of cardiac disease. Renea states that the patient does not follow with a physician. They work in [place] during the warmer months and then during the winter months they travel to other places in the [facility]. Allergies Allergy/AdvReac Type Severity Reaction Status Date / Time No Known Allergies Allergy Verified 02/18/22 21:02 Home Medications Medication Instructions Recorded Confirmed Type No Known Home Medications 02/18/22 02/18/22 History Patient History Medical History (Updated 02/18/22 @ 23:07 by Velasquez Spears MD, PhD) Severe alcohol use disorder Surgical History History of appendectomy Social History Smoking Status: Current every day smoker Tobacco Type: Cigarettes Feels Safe at Home: Yes Review of Systems Review of Systems: Difficult to obtain because of the urgency of the situation and patient is under the influence of alcohol, marijuana, and the sedatives we used in the emergency department as well as in the [place]. However, he does not have significant complaints other than back pain. Physical Exam Constitutional: WD/WN, vitals as above Eyes: PERRL, conjunctivae normal, anicteric sclerae ENMT: external ear and nose normal, oropharynx normal Neck: No JVD Respiratory: normal respiratory effort, lungs clear to auscultation (No wheezing, rhonchi, or rales appreciated) Cardiovascular: Tachycardia, regular with occasional PVCs on the monitor, I do not appreciate any murmurs. No lower extremity edema. Pulses are 2+ and symmetric. Musculoskeletal: no cyanosis or clubbing, extremities motor strength 5/5 Neurologic: Cognition is intact but his attention span is short. He has some amnesia presumably from the Ativan. He has no focal motor deficits. He does have rigors which are likely from adrenaline melchor. No focal deficits. Psychiatric: A+Ox3, euthymic affect Results & Data ([facility]) Vital Signs (Past 12 Hours) Vital Signs Temp Pulse Pulse Resp BP BP Pulse Ox 02/18/22 22:31 36.8 C 75 20 142/90 H 98 02/18/22 21:12 97 H 20 150/103 H 100 02/18/22 21:11 100 02/18/22 20:57 36.5 C 85 26 H 162/95 H 99 O2 Del Method 02/18/22 22:31 Room Air 02/18/22 21:12 Room Air 02/18/22 21:11 Room Air 02/18/22 20:57 Room Air PG Care Time/CCT Total # of Minutes Spent Total Time Spent with Patient: Total time spent is greater than 50% in coordination of care (as documented) at patient's floor/unit and/or counseling patient: Critical Care Time: Yes Approximately 60 minutes of critical care time was required in the evaluation, examination, review of available records, discussion with patient and family, formulation and implementation of a plan of care, and all associated documentation. This time is exclusive of the time spent for his procedure. [place] [address] Inpt Consult Level 5 Patient Type New Diagnoses STEMI (ST elevation myocardial infarction) I21.3 Severe alcohol use disorder F10.20 Atherogenic dyslipidemia E78.5 Ischemic cardiomyopathy I25.5 Benign essential hypertension I10 Additional Codes Critical Care Time - Critical Care Time: Yes ([id number]) Time Spent (min) 60
--- NOTE | 2022-02-18 23:20 | Pre Anesthesia Assessment ---
Date of Service February 18, 2022 Pre Sedation Assessment Vital Signs Temp Pulse Pulse Resp BP BP Pulse Ox 02/18/22 22:35 36.8 C 81 18 142/90 H 94 02/18/22 22:31 36.8 C 75 20 142/90 H 98 02/18/22 21:12 97 H 20 150/103 H 100 02/18/22 21:11 100 02/18/22 20:57 36.5 C 85 26 H 162/95 H 99 O2 Del Method 02/18/22 22:35 Room Air 02/18/22 22:31 Room Air 02/18/22 21:12 Room Air 02/18/22 21:11 Room Air 02/18/22 20:57 Room Air Cardiovascular RRR, no murmur, no edema Respiratory normal respiratory effort, lungs clear to auscultation Pre-Sedation Airway Assessment Smoking Status: Current every day smoker malampati 2 ASA 3 Notes The planned sedation has been discussed with the patient. Informed Consent was obtained. I have identified the patient, determined the appropriateness of sedation and have assessed the patient immediately prior to the procedure. All medicine(s) and interventions are by my order.
--- NOTE | 2022-02-18 23:21 | Post Anesthesia Assessment ---
Date of Service February 18, 2022 Post Sedation Assessment Vital Signs Temp Pulse Pulse Resp BP BP Pulse Ox 02/18/22 22:35 36.8 C 81 18 142/90 H 94 02/18/22 22:31 36.8 C 75 20 142/90 H 98 02/18/22 21:12 97 H 20 150/103 H 100 02/18/22 21:11 100 02/18/22 20:57 36.5 C 85 26 H 162/95 H 99 O2 Del Method 02/18/22 22:35 Room Air 02/18/22 22:31 Room Air 02/18/22 21:12 Room Air 02/18/22 21:11 Room Air 02/18/22 20:57 Room Air Discharge Sedation Level of Care: Phase I Post Sedation Plan On clinical assessment, the patient appears to have tolerated the sedation without complications. Patient is recovering as anticipated. Patient will continue to be monitored by nursing and may be discharged when sedation discharge criteria are met per below protocol. Upon Completions of procedure up to 15 minutes continue every 5 minute vital signs and the P.A.R. score; then discharge to a Phase I or Fast Track to Phase II per the following guidelines: * Discharge Patient to appropriate Phase II area if PAR is 8 or greater or return to pre- procedure baseline. The post - procedure orders will be as directed. * If PAR score is less than 8 or not return to pre-procedure baseline then patient will follow Phase I monitoring till PAR is reached for Phase II. The Phase I may be done in procedure room or may call to secure a Phase I area. * If naloxone or flumazenil are used for reversal, hold in Phase I for continued monitoring from when last reversal dose was given for a minimum of 60 minutes or longer pending the nurse and/or physician discretion of patient condition before discharge to Phase II. Please call the Sedation Physician to re-evaluate and complete post-note for discharge to Phase II area. Do NOT discharge from procedure sedation or Phase 1 until post- sedation evaluation note is complete by procedure /sedation MD Sedation Discharge Instructions to be given to the patient at discharge to [place] [facility] [place]odes ([place]arges) Indication for Procedure Indication for procedure: STEMI Sedation/Anesthesia Procedure 1: Sedation/Anesthesia: 58202 Mod Sedation by the same physician;Init15 Min Child Age 5 & Up (15 mins (total 36 min)) Total Sedation Time (minutes): 36 Procedure 2: Sedation/Anesthesia: 55185 Mod Sedation by the same physician; Ea [id number] Minutes (21 additional minutes (total 36 mins)) Total Sedation Time (minutes): 36
--- NOTE | 2022-02-19 01:50 | Billing Data ---
Date of Service February 18, 2022 Coding Level of Care Code Critical Care 1st - mins
[2022-02-19 03:41] LABS: Basophils # (auto) 0.05 K/uL (0-0.2); Basophils % (auto) 0.5 %; Eosinophils # (auto) 0.05 K/uL (0-0.50); Eosinophils % (auto) 0.5 %; Hematocrit (blood only) 40.3 % (40.1-51.0); Hemoglobin 13.9 g/dl (14.0-18.0); Immature Granulocytes # (auto) 0.04 K/uL (0.00-0.02); Immature Granulocytes % (auto) 0.4 %; Lymphocytes # (auto) 1.79 K/uL (1.2-3.4); Lymphocytes % (auto) 18.5 %; Mean Corpuscular Hemoglobin 31.2 pg (25.0-34.0); Mean Corpuscular Hgb Conc 34.5 g/dL (32.0-36.0); Mean Corpuscular Volume 90.6 fL (80.0-100.0); Mean Platelet Volume 9.9 fL (9.4-12.4); Monocytes # (auto) 0.84 K/uL (0.24-0.82); Monocytes % (auto) 8.7 %; Neutrophils # (auto) 6.93 K/uL (1.4-6.5); Neutrophils % (auto) 71.4 %; Platelet Count 209 K/uL (130-400); RDW Coefficient of Variation 12.8 % (11.5-14.5); RDW Standard Deviation 42.2 fL (36.4-46.3); Red Blood Count 4.45 M/uL (4.63-6.08)
[2022-02-19] MEDS ORDERED: POTASSIUM CHLORIDE CRTAB 20 MEQ TABCR PO STA (04:00)
[2022-02-19 04:20] LABS: BUN Creatinine Ratio 15.1 (10-20); Calcium 8.5 mg/dl (8.5-10.1); Chol HDL Ratio 3.2 (0-5); Creatinine Clr Calc Pharmacy 145.1 ml/min; Est GFR (African American) 122.2 ml/min; Est GFR (Non-African American) 105.5 ml/min
[2022-02-19 06:56] LABS: Estimated Average Glucose 114 mg/dl; Hemoglobin A1C 5.6 % (4.5-5.6)
--- NOTE | 2022-02-19 07:10 | Critical Care Progress Note ---
Date of Service February 19, 2022 Assessment & Plan (1) STEMI (ST elevation myocardial infarction): (2) S/P coronary artery stent placement: (3) Current smoker: Plan Reason Critically Ill: STEMI s/p KATIE to LAD. Admitted to ICU for continued monitoring post procedure. Neuro - [facility] ICU: Negative --Does have history of alcohol abuse -Continue with CIWA protocol Cardiac - --STEMI S/p stent in LAD Continue with Brilinta, aspirin, statin, metoprolol -- Hypertension Continue metoprolol Addition of BRENNA inhibitor will be thought of Respiratory - --Active smoker Encouraged to quit GI - GERD - OTC treatment occasionally-continue with PPI on while on DAPT RENAL/LYTES -NO acute needs - electrolyte replacement protocol - No acute needs ENDO - -- HbA1c 5.6 Continue with ICU hypoglycemia protocol HEME - NO acute needs ID - No acute needs --Prophylaxis VTE: IPC GI: Pantoprazole Lines: Peripheral Diet: Cardiac Plan: In/out: -550, urine output 2200 mL Patient drinks 6 pack of beer on a daily basis. Continue with CIWA protocol Blood pressure is a bit on the higher side. If it continues to stay on the higher side then lisinopril 5 mg will be added Please note the above document was generated using voice recognition software. It may contain grammatical, syntax or spelling errors.Any formal questions or concerns about the content, text or information contained within the body of this dictation should be directly addressed to the provider for clarification. Admission and Anticipated Discharge Date Admission Date: February 18, 2022 Subjective Patient seen and examined at bedside. No acute distress, no adverse events overnight. He did get 1 dose of Ativan for elevated CIWA score Denies any chest pain, no nausea or vomiting, no headache Denies any shortness of breath Fair appetite Review of Systems Review of Systems: All systems reviewed & are unremarkable except as noted in Subjective Physical Exam Physical Exam: Constitutional: No acute distress HEENT: EOMI, PERRLA Respiratory system: Good air entry bilaterally, no wheeze, rhonchi, no crackles CVS: S1-S2 positive, no murmurs or gallops Abdomen: Soft, nontender, nondistended, positive bowel sounds x4 Extremities: +2 pulses bilaterally radialis/ dorsalis pedis, no cyanosis, no edema Neuro: Awake alert oriented x3 Psych: Normal mood and affect G/U: No Plasencia Skin: no rashes, warm and dry Lymphatic: no cervical or axillary lymphadenopathy Results & Data Results & Data ([facility]) Vital Signs (Past 12 Hours) Vital Signs Temp Pulse Pulse Resp BP BP Pulse Ox 02/19/22 06:00 64 20 138/87 94 02/19/22 05:30 60 19 147/96 H 96 02/19/22 05:00 55 L 19 141/92 H 95 02/19/22 04:30 62 18 133/90 95 02/19/22 04:00 54 L 17 146/86 H 96 02/19/22 03:30 65 21 116/68 95 02/19/22 03:00 60 17 133/105 H 96 02/19/22 02:30 58 L 18 93 02/19/22 02:00 68 22 159/103 H 94 02/19/22 01:30 59 L 19 132/75 97 02/19/22 01:16 60 20 183/102 H 94 02/19/22 01:00 62 16 150/101 H 96 02/19/22 00:45 84 18 140/95 95 02/19/22 00:30 62 20 162/94 H 94 02/19/22 00:00 75 17 92 02/18/22 23:45 69 19 158/92 H 93 02/18/22 23:30 69 15 97 02/19/22 05:09 76 02/18/22 23:01 85 16 177/102 H 97 02/18/22 22:26 73 25 H 142/90 H 95 02/18/22 23:22 02/18/22 23:22 36.8 C 71 18 177/102 H 96 02/18/22 22:35 36.8 C 81 18 142/90 H 94 02/18/22 22:31 36.8 C 75 20 142/90 H 98 02/18/22 21:12 97 H 20 150/103 H 100 02/18/22 21:11 100 02/18/22 20:57 36.5 C 85 26 H 162/95 H 99 Pulse Ox O2 Del Method O2 Del Method 02/19/22 06:00 02/19/22 05:30 02/19/22 05:00 02/19/22 04:30 02/19/22 04:00 02/19/22 03:30 02/19/22 03:00 02/19/22 02:30 02/19/22 02:00 02/19/22 01:30 02/19/22 01:16 02/19/22 01:00 02/19/22 00:45 02/19/22 00:30 02/19/22 00:00 02/18/22 23:45 02/18/22 23:30 02/19/22 05:09 02/18/22 23:01 02/18/22 22:26 02/18/22 23:22 97 Room Air 02/18/22 23:22 Room Air 02/18/22 22:35 Room Air 02/18/22 22:31 Room Air 02/18/22 21:12 Room Air 02/18/22 21:11 Room Air 02/18/22 20:57 Room Air Laboratory Results 02/19/22 03:16 02/19/22 03:16 Coding Level of Care Code 63705 Subseq Hosp Care Lvl 3 Diagnoses STEMI (ST elevation myocardial infarction) I21.3 S/P coronary artery stent placement Z95.5 Current smoker F17.200
--- NOTE | 2022-02-19 08:00 | XRay Report ---
XR chest 1V portable CLINICAL HISTORY: Chest Pain TECHNIQUE: Single frontal radiograph of the chest was obtained. Comparison: None available at the time of this dictation. FINDINGS: Exam is limited by underpenetration. The cardiomediastinal silhouette is normal. Faint airspace opaci ty is seen in the right greater than left lower lung. No evidence of pleural effusion or pneumothorax . IMPRESSION: Faint bilateral airspace opacities which may represent aspiration, atelectasis, and/or pneumonia. ACT 112: Negative or not required by law. Electronically signed by: Ramakrishna Bryant M.D. 02/19/2022 7:58 AM
[2022-02-19] MEDS: ASPIRIN 81 MG ECTAB PO SCH (08:23)
[2022-02-19] MEDS: METOPROLOL TARTRATE 25 MG TAB PO SCH ×2 (08:24→20:21)
[2022-02-19] MEDS: ATORVASTATIN 40 MG TAB PO SCH (08:24)
[2022-02-19] MEDS: PANTOprazole 40 MG TAB PO SCH (08:24)
[2022-02-19] MEDS ORDERED: TICAGRELOR 90 MG TAB PO SCH (09:00)
[2022-02-19] MEDS ORDERED: Ativan IV Alcohol Withdrawal--Active Protocol IV PRN (10:00)
[2022-02-19] MEDS ORDERED: LORazepam 1 MG in SYRINGE 0 ML IV PRN (10:00)
[2022-02-19] MEDS ORDERED: LORazepam 3 MG in SYRINGE 0 ML IV PRN (10:00)
[2022-02-19] MEDS ORDERED: LORazepam 2 MG in SYRINGE 0 ML IV PRN (10:00)
--- NOTE | 2022-02-19 11:52 | Electrocardiogram Report ---
Test Reason : Blood Pressure : / mmHG Vent. Rate : 071 BPM Atrial Rate : 071 BPM P-R Int : 168 ms QRS Dur : 082 ms QT Int : 386 ms P-R-T Axes : 056 -02 032 degrees QTc Int : 419 ms Normal sinus rhythm Anterolateral injury pattern Abnormal ECG When compared with ECG of 18-FEB-2022 21:16, ST less elevated in Lateral leads Confirmed by Rick Salcedo ([id number]) on 02/19/2022 11:52:26 AM Referred By: REFERRED SELF Confirmed By:Rick Salcedo
--- NOTE | 2022-02-19 11:52 | Electrocardiogram Report ---
Test Reason : Blood Pressure : / mmHG Vent. Rate : 098 BPM Atrial Rate : 098 BPM P-R Int : 138 ms QRS Dur : 086 ms QT Int : 316 ms P-R-T Axes : 082 -57 031 degrees QTc Int : 403 ms Poor data quality, interpretation may be adversely affected Sinus rhythm with Premature supraventricular complexes Left axis deviation Left ventricular hypertrophy Anterolateral injury pattern Abnormal ECG No previous ECGs available Confirmed by Rick Salcedo ([id number]) on 02/19/2022 11:51:46 AM Referred By: REFERRED SELF Confirmed By:Rick Salcedo
--- NOTE | 2022-02-19 12:00 | Electrocardiogram Report ---
Test Reason : Blood Pressure : / mmHG Vent. Rate : 056 BPM Atrial Rate : 056 BPM P-R Int : 172 ms QRS Dur : 092 ms QT Int : 432 ms P-R-T Axes : 055 004 029 degrees QTc Int : 416 ms Sinus bradycardia Minor ST elevation in Anterolateral leads Abnormal ECG When compared with ECG of 18-FEB-2022 23:08, ST elevation in Anterolateral leads less pronounced Confirmed by Rick Salcedo ([id number]) on 02/19/2022 12:00:20 PM Referred By: REFERRED SELF Confirmed By:Rick Salcedo
--- NOTE | 2022-02-19 12:18 | Electrocardiogram Report ---
Test Reason : Blood Pressure : / mmHG Vent. Rate : 081 BPM Atrial Rate : 081 BPM P-R Int : 166 ms QRS Dur : 086 ms QT Int : 376 ms P-R-T Axes : 060 005 050 degrees QTc Int : 436 ms Normal sinus rhythm Anterolateral injury pattern Abnormal ECG When compared with ECG of 18-FEB-2022 20:57, Premature supraventricular complexes are no longer Present ST less elevated in Anterolateral leads Confirmed by Rick Salcedo ([id number]) on 02/19/2022 12:18:15 PM Referred By: REFERRED SELF Confirmed By:Rick Salcedo
--- NOTE | 2022-02-19 13:23 | Cardiology Progress Note ---
Date of Service February 19, 2022 Assessment & Plan (1) Benign essential hypertension: Plan: Blood pressure is currently controlled. Was running a little bit high earlier. For now, continue metoprolol 25 mg p.o. twice daily. BRENNA inhibitor/ARB if his blood pressure consistently above 140 mmHg systolic. (2) Ischemic cardiomyopathy: Plan: I have personally reviewed the echocardiogram. I would agree with the findings except I believe the EF is closer to 50 to 55% and there is mild hypokinesis of the distal anterior and apical myocardium. This is already improvement compared to left ventriculogram findings. Therefore, he does not seem to have suffered permanent reduction in EF. Standard coronary artery disease regimen will be adequate. No evidence of fluid overload at this time. (3) Atherogenic dyslipidemia: Plan: High risk. High intensity statin therapy is recommended. Currently on atorvastatin 40 mg daily. LDL not reported on the lipid panel. We should obtain a direct LDL so that we can target a 50% reduction per AHA/ACC guidelines on management of high risk patients. (4) Severe alcohol use disorder: Plan: Thus far, no evidence of DTs. Continue prophylaxis per primary team. Plan At this point, patient is appropriate for transfer to stepdown unit this afternoon or evening. Likely will be ready for discharge tomorrow. Admission and Anticipated Discharge Date Admission Date: February 18, 2022 Subjective Patient feeling well. He is resting at the time of my evaluation. Denies any ongoing chest discomfort or shortness of breath. Still plans to travel to [place] and thereafter to [place] to see his family. After that, he may proceed to [place]. No adverse events overnight. Echocardiogram was completed. Thus far, he is tolerating his medications. Review of Systems Review of Systems: Negative except as per HPI Physical Exam Constitutional: WD/WN, vitals as above Eyes: Anicteric ENMT: Oral mucosa is pink, moist, and intact. Neck: No JVD Respiratory: Clear to auscultation bilaterally. No wheezing, rhonchi, or rales. Cardiovascular: Regular rate and rhythm. S4 gallop. No rubs or murmurs appreciated. Musculoskeletal: Right radial access site is clean dry and intact. Good distal perfusion. Nontender. No masses, bruits, or ecchymosis. Neurologic: Cognition is intact. Speech is fluent. No focal deficits. No tremor. Psychiatric: A+Ox3, euthymic affect Results & Data ([facility]) Vital Signs (Past 12 Hours) Vital Signs Temp Pulse Pulse Resp BP BP Pulse Ox 02/19/22 12:00 37.0 C 70 20 107/55 L 90 02/19/22 11:30 78 18 02/19/22 11:00 67 13 91 02/19/22 11:00 175/107 H 02/19/22 10:30 64 19 97 02/19/22 10:30 143/96 H 02/19/22 10:52 37.0 C 58 L 20 143/96 H 93 02/19/22 10:00 59 L 20 96 02/19/22 10:00 129/83 02/19/22 09:30 62 20 96 02/19/22 09:30 144/86 H 02/19/22 09:00 64 19 95 02/19/22 09:00 129/83 02/19/22 08:30 70 18 94 02/19/22 08:30 114/59 L 02/19/22 08:00 74 11 L 95 02/19/22 08:00 142/80 H 02/19/22 07:30 78 19 96 02/19/22 07:30 150/93 H 02/19/22 07:01 76 14 98 02/19/22 07:01 141/78 H 02/19/22 07:00 76 21 97 02/19/22 06:30 64 24 95 02/19/22 06:30 129/79 02/19/22 08:00 02/19/22 08:00 64 02/19/22 08:00 02/19/22 08:00 02/19/22 07:00 37.0 C 60 20 141/78 H 97 02/19/22 06:00 64 20 138/87 94 02/19/22 05:30 60 19 147/96 H 96 02/19/22 05:00 55 L 19 141/92 H 95 02/19/22 04:30 62 18 133/90 95 02/19/22 04:00 54 L 17 146/86 H 96 02/19/22 03:30 65 21 116/68 95 02/19/22 03:00 60 17 133/105 H 96 02/19/22 02:30 58 L 18 93 02/19/22 02:00 68 22 159/103 H 94 02/19/22 01:30 59 L 19 132/75 97 02/19/22 05:09 76 Pulse Ox O2 Del Method O2 Del Method O2 Flow Rate 02/19/22 12:00 Nasal Cannula 2 02/19/22 11:30 02/19/22 11:00 02/19/22 11:00 02/19/22 10:30 02/19/22 10:30 02/19/22 10:52 Room Air 02/19/22 10:00 02/19/22 10:00 02/19/22 09:30 02/19/22 09:30 02/19/22 09:00 02/19/22 09:00 02/19/22 08:30 02/19/22 08:30 02/19/22 08:00 02/19/22 08:00 02/19/22 07:30 02/19/22 07:30 02/19/22 07:01 02/19/22 07:01 02/19/22 07:00 02/19/22 06:30 02/19/22 06:30 02/19/22 08:00 Room Air 02/19/22 08:00 02/19/22 08:00 97 Room Air 02/19/22 08:00 Room Air 02/19/22 07:00 Room Air 02/19/22 06:00 02/19/22 05:30 02/19/22 05:00 02/19/22 04:30 02/19/22 04:00 02/19/22 03:30 02/19/22 03:00 02/19/22 02:30 02/19/22 02:00 02/19/22 01:30 02/19/22 05:09 PG Care Time/CCT Total # of Minutes Spent Total Time Spent with Patient: Total time spent is greater than 50% in coordination of care (as documented) at patient's floor/unit and/or counseling patient: Coding Level of Care Code 42222 Subseq Hosp Care Lvl 3 Diagnoses Benign essential hypertension I10 Ischemic cardiomyopathy I25.5 Atherogenic dyslipidemia E78.5 Severe alcohol use disorder F10.20
[2022-02-19] MEDS: THIAMINE HCL 100 MG TAB PO SCH (14:32)
[2022-02-19] MEDS: FOLIC ACID 1 MG TAB PO SCH (14:32)
[2022-02-19] MEDS: MULTIVITAMIN TAB PO SCH (14:32)
--- NOTE | 2022-02-19 17:13 | Hospitalist Progress Note ---
Date of Service February 19, 2022 Assessment & Plan (1) STEMI (ST elevation myocardial infarction): Plan: Symptoms of unstable angina with anterolateral ST segment elevations on initial EKG in the ED. S/p PCI with KATIE to LAD. Remains chest pain-free, troponins are trending upward to 8000, will check again and trend until peaks - admit to ICU for close hemodynamic monitoring-no significant events during Will-downgraded to PCU -Echocardiogram with preserved EF -Lipid panel with direct LDL 141 - continue with ASA 81mg daily - loaded with and started on Brilinta as he has state based Medicaid and would not be returning to his home state of [place] for many months-discussed with cardiology-we will load with Plavix 300 Mg p.o. x1 this evening and then continue Plavix 75 Mg p.o. once daily. Discontinue Brilinta - started high intensity atorvastatin 40mg PO QAM - started Metoprolol tartrate 25mg PO BID - consider BRENNA-I as per cardiology -Continue to monitor on telemetry for arrhythmia -counseled on smoking cessation and abstinence or significant reduction in a lcohol intake -Follow BMP, magnesium in the morning and replace electrolytes as needed (2) S/P coronary artery stent placement: Plan: KATIE to LAD. Plan as above (3) Current smoker: Plan: 25 pack year history and currently smokes 1/2-1ppd. - counseled on cessation (4) Severe alcohol use disorder: Plan: Has 6-12 drinks per day, and had 3 beers shortly before presentation. - AWSS protocol with PRN Ativan - counseled on cessation ordered significant reduction to no more than 1-2 drinks per day -Continue thiamine, folate (5) Benign essential hypertension: Plan: No medication for this previous to arrival but blood pressures improved with metoprolol (6) CAD (coronary artery disease), [place] coronary artery: Plan: As above Plan DVT Prophylaxis: Aspirin/Plavix, ambulation Code Status: full code Disposition: Continued stay downgrade to PCU, possible discharge home tomorrow. 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 Admission and Anticipated Discharge Date Admission Date: February 18, 2022 Subjective Patient seen downgrade from ICU. He denies any chest pain or left arm pain. Feeling well. No shortness of breath. No nausea or abdominal pain. He is ambulating around without difficulty. He plans on traveling to [place] over the next 3 months in his camper but says that he will have access to a chip tester when he gets to his parents house in [place]. Discussed his case with chip tester. Review of Systems Review of Systems: All systems reviewed & are unremarkable except as noted in HPI & below Physical Exam Constitutional: WD/WN, vitals as above Eyes: + anicteric sclerae ENMT: external ear and nose normal, oropharynx normal Neck: trachea midline, no thyromegaly Respiratory: normal respiratory effort, lungs clear to auscultation Cardiovascular: RRR, no murmur, no edema Right wrist with dressing in place cath site Chest (Breasts): Chest: normal inspection of chest Gastrointestinal (Abdomen): normal bowel sounds, soft, nontender, no hepatosplenomegaly Musculoskeletal: Extremities: extremities normal to inspection; no cyanosis and no clubbing Skin: no rashes, warm and dry Neurologic: moves all extremities and awake; no focal motor deficits Psychiatric: A+Ox3, euthymic affect Lymphatic: no lymphedema Results & Data Results & Data ([facility]) Vital Signs (Past 12 Hours) Vital Signs Temp Pulse Pulse Resp BP BP Pulse Ox 02/19/22 16:30 74 18 93 02/19/22 16:30 125/89 02/19/22 16:00 60 16 94 02/19/22 16:00 131/78 02/19/22 15:30 64 16 96 02/19/22 15:30 129/87 02/19/22 15:01 77 19 96 02/19/22 15:01 115/89 02/19/22 15:00 58 L 17 94 02/19/22 14:30 54 L 19 92 02/19/22 14:30 140/89 02/19/22 14:00 59 L 19 95 02/19/22 14:00 132/82 02/19/22 16:00 57 L 02/19/22 14:00 37.0 C 69 20 140/89 96 02/19/22 13:30 57 L 20 94 02/19/22 13:30 132/79 02/19/22 13:00 57 L 20 95 02/19/22 13:00 130/80 02/19/22 12:30 68 21 97 02/19/22 12:30 136/82 02/19/22 12:01 75 18 96 02/19/22 12:01 107/55 L 02/19/22 12:00 72 19 96 02/19/22 11:31 75 22 02/19/22 11:31 132/82 02/19/22 12:00 37.0 C 70 20 107/55 L 90 02/19/22 11:30 78 18 02/19/22 11:00 67 13 91 02/19/22 11:00 175/107 H 02/19/22 10:30 64 19 97 02/19/22 10:30 143/96 H 02/19/22 10:52 37.0 C 58 L 20 143/96 H 93 02/19/22 10:00 59 L 20 96 02/19/22 10:00 129/83 02/19/22 09:30 62 20 96 02/19/22 09:30 144/86 H 02/19/22 09:00 64 19 95 02/19/22 09:00 129/83 02/19/22 08:30 70 18 94 02/19/22 08:30 114/59 L 02/19/22 08:00 74 11 L 95 02/19/22 08:00 142/80 H 02/19/22 07:30 78 19 96 02/19/22 07:30 150/93 H 02/19/22 07:01 76 14 98 02/19/22 07:01 141/78 H 02/19/22 07:00 76 21 97 02/19/22 06:30 64 24 95 02/19/22 06:30 129/79 02/19/22 08:00 02/19/22 08:00 64 02/19/22 08:00 02/19/22 08:00 02/19/22 07:00 37.0 C 60 20 141/78 H 97 02/19/22 06:00 64 20 138/87 94 02/19/22 05:30 60 19 147/96 H 96 Pulse Ox O2 Del Method O2 Del Method O2 Flow Rate 02/19/22 16:30 02/19/22 16:30 02/19/22 16:00 02/19/22 16:00 02/19/22 15:30 02/19/22 15:30 02/19/22 15:01 02/19/22 15:01 02/19/22 15:00 02/19/22 14:30 02/19/22 14:30 02/19/22 14:00 02/19/22 14:00 02/19/22 16:00 02/19/22 14:00 Room Air 02/19/22 13:30 02/19/22 13:30 02/19/22 13:00 02/19/22 13:00 02/19/22 12:30 02/19/22 12:30 02/19/22 12:01 02/19/22 12:01 02/19/22 12:00 02/19/22 11:31 02/19/22 11:31 02/19/22 12:00 Nasal Cannula 2 02/19/22 11:30 02/19/22 11:00 02/19/22 11:00 02/19/22 10:30 02/19/22 10:30 02/19/22 10:52 Room Air 02/19/22 10:00 02/19/22 10:00 02/19/22 09:30 02/19/22 09:30 02/19/22 09:00 02/19/22 09:00 02/19/22 08:30 02/19/22 08:30 02/19/22 08:00 02/19/22 08:00 02/19/22 07:30 02/19/22 07:30 02/19/22 07:01 02/19/22 07:01 02/19/22 07:00 02/19/22 06:30 02/19/22 06:30 02/19/22 08:00 Room Air 02/19/22 08:00 02/19/22 08:00 97 Room Air 02/19/22 08:00 Room Air 02/19/22 07:00 Room Air 02/19/22 06:00 02/19/22 05:30 Laboratory Results Labs reviewed Diagnostic Findings Chest x-ray image personally reviewed by me and agree with the following report Chest X-Ray 02/18/22 20:56 XR chest 1V portable CLINICAL HISTORY: Chest Pain TECHNIQUE: Single frontal radiograph of the chest was obtained. Comparison: None available at the time of this dictation. FINDINGS: Exam is limited by underpenetration. The cardiomediastinal silhouette is normal. Faint airspace opacity is seen in the right greater than left lower lung. No evidence of pleural effusion or pneumothorax. IMPRESSION: Faint bilateral airspace opacities which may represent aspiration, atelectasis, and/or pneumonia. ACT 112: Negative or not required by law. Electronically signed by: Ramakrishna Bryant M.D. 02/19/2022 7:58 AM ECG Additional Comments: ECG 02/19/[address] elevation, with sinus bradycardia PG Care Time/CCT Total # of Minutes Spent Total Time Spent with Patient: Total time spent is greater than 50% in coordination of care (as documented) at patient's floor/unit and/or counseling patient: Coding Level of Care Code 19597 Subseq Hosp Care Lvl 3 Diagnoses STEMI (ST elevation myocardial infarction) I21.3 S/P coronary artery stent placement Z95.5 Current smoker F17.200 Severe alcohol use disorder F10.20 Benign essential hypertension I10 CAD (coronary artery disease), [place] coronary artery I25.10
[2022-02-19] MEDS ORDERED: CLOPIDOGREL BISULFATE 300 MG TAB PO ONE (21:00)
[2022-02-20 06:27] LABS: Basophils # (auto) 0.06 K/uL (0-0.2); Basophils % (auto) 0.9 %; Eosinophils # (auto) 0.16 K/uL (0-0.50); Eosinophils % (auto) 2.3 %; Hematocrit (blood only) 43.8 % (40.1-51.0); Hemoglobin 15.2 g/dl (14.0-18.0); Immature Granulocytes # (auto) 0.02 K/uL (0.00-0.02); Immature Granulocytes % (auto) 0.3 %; Lymphocytes # (auto) 1.63 K/uL (1.2-3.4); Lymphocytes % (auto) 23.5 %; Mean Corpuscular Hemoglobin 31.8 pg (25.0-34.0); Mean Corpuscular Hgb Conc 34.7 g/dL (32.0-36.0); Mean Corpuscular Volume 91.6 fL (80.0-100.0); Monocytes # (auto) 0.72 K/uL (0.24-0.82); Monocytes % (auto) 10.4 %; Neutrophils # (auto) 4.34 K/uL (1.4-6.5); Neutrophils % (auto) 62.6 %; Platelet Count 217 K/uL (130-400); RDW Coefficient of Variation 13.1 % (11.5-14.5); RDW Standard Deviation 44.2 fL (36.4-46.3); Red Blood Count 4.78 M/uL (4.63-6.08); White Blood Count 6.93 K/ul (4.8-10.8)
[2022-02-20 06:51] LABS: BUN Creatinine Ratio 16.7 (10-20); Creatinine Clr Calc Pharmacy 122.4 ml/min; Est GFR (African American) 103.1 ml/min; Magnesium 2.1 mg/dl (1.7-2.4); Potassium 4.2 mmol/L (3.5-5.1)
[2022-02-20] MEDS: ASPIRIN 81 MG ECTAB PO SCH (08:47)
[2022-02-20] MEDS: MULTIVITAMIN TAB PO SCH (08:47)
[2022-02-20] MEDS: METOPROLOL TARTRATE 25 MG TAB PO SCH (08:47)
[2022-02-20] MEDS: THIAMINE HCL 100 MG TAB PO SCH (08:47)
[2022-02-20] MEDS: PANTOprazole 40 MG TAB PO SCH (08:48)
[2022-02-20] MEDS: ATORVASTATIN 40 MG TAB PO SCH (08:48)
[2022-02-20] MEDS ORDERED: CLOPIDOGREL BISULFATE 75 MG TAB PO SCH (09:00)
[2022-02-20] MEDS: FOLIC ACID 1 MG TAB PO SCH (10:08)
--- NOTE | 2022-02-20 12:18 | Discharge Summary ---
Date of Service February 20, 2022 Admission HPI Per Admitting Provider Bubba Jacques is a 46yo male without significant PMHx who presented to [facility] ED on 02/18 via EMS as heart alert, for acute-onset retrosternal chest pain radiating to left arm - acute onset at 7pm and non-exertional. Patient does not regularly see a doctor but denies chronic medical problems or regular medications. He is a current smoker with 25 pack year history and currently smokes 1/2-1ppd. Also has 6-12 drinks per day (usually mixed drinks and beer); last drink was earlier this evening. Denies family h/o CAD/heart disease/MT. Patient received Aspirin 324mg and SL Nitroglycerin en route to our ED, with minimal improvement in symptoms. In the ED the patient had persistent chest pain. Mildly hypertensive to 162/95 and tachypneic to 26. Satting well on room air. EKG with anterolateral ST elevations. Labs otherwise notable for hsTroponin 58.7, WBC 14.10 (neutrophilic predominance and mild L shift), K 3.4. CBC/CMP/PT/PTT/INR otherwise WNL. Patient was taken for PCI with KATIE x1 to LAD. Was also loaded with Brilinta. On assessment after PCI, patient reports that chest pain has resolved but still has mild left arm pain. Principal Diagnosis ST elevation MT status post PCI, KATIE to LAD 02/18/2022 Nicotine dependence Htn Unhealthy alcohol use. Discharge Data Allergies Allergy/AdvReac Type Severity Reaction Status Date / Time No Known Allergies Allergy Verified 02/18/22 21:02 Consultations 02/18/22 21:09 Consult Cardiac Catheterization Stat 02/18/22 22:17 Consult Ethnic Origins Teacher Routine Procedures Performed Operation Date: 02/18/22 21:00 Actual Procedures s Ultrasound Vascular Access - Velasquez Spears MD, PhD s Cineradiography w/Routine Exam - Velasquez Spears MD, PhD p Aspiration/PCI w/KATIE for Stemi - Velasquez Spears MD, PhD s Cath, Left with Cors and Vent - Velasquez Spears MD, PhD Ordered Studies 02/18/22 20:59 CL Cath Imgs for PACS use only Stat Hospital Course (1) STEMI (ST elevation myocardial infarction): must see a fancy stitcher - thinks he can in [place] where he will be next week. Urged to get PCP- he is educated with good insight and understands the concept of health maintenance and a primary fpc. (2) S/P coronary artery stent placement: Made aware with the card which artery was intervened upon (3) Current smoker: At discharge we had a 5-minute discussion about smoking cessation. He says he is quit 21 times and its most addicting substance in the world. This time I will discharge him on on nicotine patch 14 mg daily. I explained him the use of the patch. There is no end date. This can be used for as long as 1 to 2 years. If he has the urge to smoke he takes off the patch. Urged him to get into smoking cessation clinic in [place] or another [facility] will be heading in a few weeks. (4) Severe alcohol use disorder: Seems to have adequate insight. Drinks between 4-12 beers daily. He is amply aware of the adverse effects of alcohol. At discharge he told me he plans to join [employer]. (5) Benign essential hypertension: BP 122/74 and heart rate 59 at discharge (6) CAD (coronary artery disease), [place] coronary artery: Total Time Total Time Spent Total Time Spent (In Minutes): 40 Discharge Plan Discharge Items Patient Disposition: Home - Self-Care Reason For Visit: ANTERIOR STEMI Discharge Diagnosis: STEMI (anterior) CAD benign essential hypertension atherogenic dyslipidemia Condition on Discharge: Good Health Concerns: Your peripatetic lifestyle until June is concerning. Please see a doctor between now and June when you return to [place], your job location, where you must establish primary care as explained. Nicotine patch 14 mg/hour can be obtained over the counter. Call quit- now for smoking cessation tips and help. Good luck. YOU HAVE TO QUIT as discussed. Activity: Resume your previous activity Bathing: No limitations Sexual Activity: When tolerated Driving/Machine Use: No limitations Weightbearing: Full weightbearing Non-emergency contact: Primary Care Provider and Pipe [employer] Call non-emergency contact if: you have any medication questions, your symptoms worsen, your pain is not controlled, you have a fever, your wound has increased redness and your wound has increased drainage Follow-up/Referrals: PCP,NO [Primary Care Provider] - Diet: Heart Healthy Addtl Attending Provider Instructions: ACTIVITY RECOMMENDATIONS: Excess manipulation of the wrist should be avoided for the next 24-48 hours. * No lifting over 2 pounds (approximately a 1/2 gallon of milk) with the utilized arm for 24 hours. * No strenuous activity such as bowling or tennis for 3 days. * Keep the site of the procedure covered with a bandage for 24 hours. *You may shower the day after the procedure. Do not take a tub bath or submerge the puncture site in water for the next 3 days. *Do not operate any motorized equipment for 3 days. SPECIAL CARE INSTRUCTIONS: The site may be slightly bruised and sore following your procedure. Should any of the following occur, contact the Dr. who performed your procedure. 1. Redness/inflammation, swelling, chills, or fever, or colored drainage at procedure site within 3-7 days after your procedure. 2. Coldness, discoloration, ongoing numbness, severe pain, or swelling. Expect mild tingling of hand and tenderness at the puncture site for up to three days. If this persists beyond three days, or other symptoms develop, notify the DrShellie who performed y our procedure. BLEEDING: If the procedure site on your wrist begins to bleed, do not panic 1. Place 1 or 2 fingers firmly just slightly above the insertion site to stop the bleeding. You may be able to feel your pulse as you hold pressure. 2. Lift your finger after 5 minutes to see if the bleeding has stopped. 3. Once the bleeding has stopped, gently wipe the wrist area clean with a bandage. * If the bleeding from your wrist does not stop after 10 minutes, or if there is a large amount of bleeding or spurting, call 911 (do not drive yourself to the hospital). SKIN IRRITATION: * You may experience some redness and/or swelling in the area where radiation was administered. If any skin irritation occurs, please contact your family physician. FOLLOW UP VISIT: Keep any scheduled doctor appointments. Pending Studies at Discharge: No Stand-Alone Forms: My [employer], Smoking Cessation Medications and DC Order Prescriptions: New atorvastatin 40 mg Tablet 40 mg PO QAM 90 Days Qty: 90 3RF clopidogrel 75 mg Tablet 75 mg PO QAM 90 Days Qty: 90 3RF aspirin 81 mg Tablet,Delayed Release (Dr/Ec) 81 mg PO QAM 90 Days Qty: 90 3RF metoprolol tartrate 25 mg Tablet 25 mg PO BID 90 Days Qty: 180 3RF Discharge Orders: Discharge Order (Routine); Ordered 02/20/22 Ordered By: Alphonse Slade Admission Data Admit Date/Time: 02/18/22 22:17 Attending Provider: Alphonse Slade Admit Provider: Velasquez Spears Primary Care Provider: PCP,NO Other Providers: Velasquez Spears ; Toro Fang ; Eric Grier ; Hipolito Deng ; Merlin Mcneal ; Jon Menon ; Darion Rivers ; Torin Schroeder ; Efrem Grier ; Ellyn Barnett Coding Level of Care Code D/C DAY MANAGEMENT >30 MINS Diagnoses STEMI (ST elevation myocardial infarction) I21.3 S/P coronary artery stent placement Z95.5 Current smoker F17.200 Severe alcohol use disorder F10.20 Benign essential hypertension I10 CAD (coronary artery disease), [place] coronary artery I25.10
--- NOTE | 2022-02-20 12:30 | Cardiology Progress Note ---
Date of Service February 20, 2022 Assessment & Plan (1) CAD (coronary artery disease), [place] coronary artery: Plan: Status post anterior STEMI status post PCI of the LAD with a drug-eluting stent. Dual antiplatelet therapy with aspirin 81 mg daily and Plavix 75 mg p.o. daily to be continued for at least 1 year. Guideline directed medical therapy with metoprolol tartrate 25 mg p.o. twice daily and high intensity statin therapy. (2) Atherogenic dyslipidemia: Plan: High risk. High intensity statin therapy with a atorvastatin 40 mg daily is recommended. Annual lipid panel and titration of his atorvastatin as needed to achieve target LDL reduction (3) Benign essential hypertension: Plan: Blood pressure is well controlled. Continue current medical regimen. Plan Patient is appropriate for discharge from a cardiovascular standpoint. He should be provided with post cath instructions as I have added to his discharge form. His prescriptions have been written for 90 days and should be printed so that he may take with them. He has been cautioned against not taking his aspirin and Plavix. There is a high risk for acute stent thrombosis and associated myocardial infarction and . He was made aware of this. He will need to seek out a profiling machine set up operator when he returns to his most permanent residence. Also should seek out a primary care provider at the same location. Admission and Anticipated Discharge Date Admission Date: February 18, 2022 Subjective No events overnight. Patient denies chest pain or shortness of breath. He requests paper scripts for discharge as he plans to turkey picker his medications as he travels. Review of Systems Review of Systems: Negative except as per HPI Physical Exam Constitutional: WD/WN, vitals as above Eyes: PERRL, conjunctivae normal, anicteric sclerae ENMT: external ear and nose normal, oropharynx normal Neck: No JVD Respiratory: normal respiratory effort, lungs clear to auscultation (No wheezing, rhonchi, or rales) Cardiovascular: RRR, no murmur, no edema Musculoskeletal: no cyanosis or clubbing, extremities motor strength 5/5 Neurologic: Cognition is intact. Speech is fluent. No focal deficits. No tremor. Ambulates normally. Psychiatric: A+Ox3, euthymic affect Results & Data ([facility]) Vital Signs (Past 12 Hours) Vital Signs Temp Pulse Resp BP Pulse Ox O2 Del Method 02/20/22 07:04 36.6 C 59 L 18 122/74 97 Room Air 02/20/22 02:59 36.4 C L 60 18 115/73 93 Room Air PG Care Time/CCT Total # of Minutes Spent Total Time Spent with Patient: Total time spent is greater than 50% in coordination of care (as documented) at patient's floor/unit and/or counseling patient: Coding Level of Care Code 72005 Subseq Hosp Care Lvl 2 Diagnoses CAD (coronary artery disease), [place] coronary artery I25.10 Atherogenic dyslipidemia E78.5 Benign essential hypertension I10
== END 2022-02-20 13:49 | disposition home or self-care (01) | DRG 247 ==
LOC: ED 20:53 → CC 21:19 → 1E 22:17 → SUATTDRO 22:17 → 2S 02-19 18:39